=== PATIENT | male | born 1945 | race Caucasian/White ===

== ENCOUNTER 2017-11-23 17:43 | Emergency (ER) | payer MEDICARE, MEDICAID ==
[~2017-11-23] VITALS: Ht 175.3 cm; Wt 97.0 kg
[2017-11-23] MEDS ORDERED: LISI5TAB7 PO (18:08)
[2017-11-23] MEDS ORDERED: MULT1TAB98 PO (18:08)
[2017-11-23] MEDS ORDERED: GUAI600T31 PO (18:08)
[2017-11-23] MEDS ORDERED: QUET100T PO (18:08)
[2017-11-23] MEDS ORDERED: DIVA500T17 PO (18:08)
[2017-11-23] MEDS ORDERED: CARV3.122 PO (18:08)
[2017-11-23] MEDS ORDERED: FURO20TA3 PO (18:08)
[2017-11-23] MEDS ORDERED: SODIUM CHLORIDE FLUSH 10ML SYR IVF ONE (18:30)
[2017-11-23] MEDS ORDERED: FLUORESCEIN OPHTHALMIC 1 MG STRIP EACHEYE ONE (18:30)
[2017-11-23] MEDS ORDERED: PROPARACAINE OPHTH 0.5%, 15ML EACHEYE ONE (18:30)
[2017-11-23] MEDS ORDERED: PROPARACAINE OPHTH 0.5%, 15ML ONE ×2 (18:42→19:16)
[2017-11-23 19:13] LABS: BASOPHILS # (AUTO) 0.02 x10^3/uL (0-0.1); BASOPHILS % (AUTO) 0 % (0-1); EOSINOPHILS # (AUTO) 0.17 x10^3/uL (0-0.4); EOSINOPHILS % (AUTO) 2 % (1-7); LYMPHOCYTES % (AUTO) 25 % (22-44); MD NO; MEAN CORPUSCULAR HEMOGLOBIN 32.8 pg (27.5-34.5); MEAN CORPUSCULAR HGB CONC 34.2 g/dL (33.2-36.2); MEAN PLATELET VOLUME 10.7 fL (7.4-10.4); MONOCYTES # (AUTO) 0.94 x10^3/uL (0.2-0.8); MONOCYTES % (AUTO) 10 % (2-9); NEUTROPHILS # (AUTO) 5.96 x10^3/uL (1.8-6.8); NEUTROPHILS % (AUTO) 64 % (42-75); PLATELET COUNT 127 x10^3/uL (130-400); RED BLOOD COUNT 5.02 x10^6/uL (4.38-5.82); RED CELL DISTRIBUTION WIDTH 14.8 % (9.4-14.8)
[2017-11-23 19:24] LABS: CHLORIDE 108 mmol/L (98-107)
[2017-11-23] MEDS ORDERED: PLEASE ENTER ALLERGIES MC SCH (19:30)
[2017-11-23 19:32] LABS: ALANINE AMINOTRANSFERASE 25 U/L (12-78); ALBUMIN 3.3 g/dL (3.4-5.0); ALKALINE PHOSPHATASE 65 U/L (45-117); ANION GAP 2 mmol/L (5-15); BILIRUBIN,TOTAL 0.3 mg/dL (0.2-1.0); CREATININE 1.59 mg/dL (0.7-1.3); TROPONIN I 0.029 ng/mL (0.000-0.045)
[2017-11-23 22:36] VITALS: BP 167/99
== END 2017-11-23 23:08 | disposition home or self-care (01) ==
LOC: ED 22:21
DX: S09.8XXA Other specified injuries of head, initial encounter (principal); N28.9 Disorder of kidney and ureter, unspecified; Z86.73 Personal history of transient ischemic attack (TIA), and cerebral infarction without residual deficits; I10 Essential (primary) hypertension; Y93.89 Activity, other specified; W18.30XA Fall on same level, unspecified, initial encounter; Y99.8 Other external cause status; Y92.89 Other specified places as the place of occurrence of the external cause
CPT/HCPCS: 36415; 70450; 71045; 80053; 84484; 85025; 93005; 99285

== ENCOUNTER 2018-05-09 13:28 | Inpatient (IN) | payer MEDICARE, MEDICAID ==
[~2018-05-09] VITALS: Ht 193 cm; Wt 92.8 kg
[~2018-05-09 13:28] MED LIST: CARV3.122 PO; DIVA500T17 PO; FURO20TA3 PO; GUAI600T31 PO; LISI5TAB7 PO; MULT1TAB98 PO; QUET100T PO
[2018-05-09] MEDS ORDERED: BISACODYL 10 MG SUPP PR PRN (18:30)
[2018-05-09] MEDS ORDERED: DOCUSATE 100 MG CAPSULE PO PRN (18:30)
[2018-05-09 20:00] VITALS: BP_SYST 124; BP_DIAS 71; BP_DIAS 84
[2018-05-09] MEDS: PLEASE ENTER HEIGHT AND WEIGHT MC SCH (20:00)
[2018-05-09] MEDS ORDERED: OXCARBAZEPINE 150 MG TABLET PO SCH (21:00)
[2018-05-09] MEDS ORDERED: RISPERIDONE 1 MG TAB.RAPDIS PO SCH (21:00)
[2018-05-09] MEDS: ISOSORBIDE DINITRATE 10 MG TABLET PO SCH (21:00)
[2018-05-09 21:15] LABS: MICROSCOPIC NOT IND
[2018-05-09 21:20] LABS: CULTURE INDICATED? NO
[2018-05-09] MEDS: DOCUSATE 100 MG CAPSULE PO SCH (21:59)
[2018-05-09] MEDS: FAMOTIDINE 20 MG TABLET PO SCH (22:00)
[2018-05-09] MEDS: MIRTAZAPINE 15 MG TABLET PO SCH (22:00)
[2018-05-09] MEDS: ACETAMINOPHEN 325 MG TABLET PO PRN (23:19)
[2018-05-10] MEDS: PLEASE ENTER HEIGHT AND WEIGHT MC SCH (04:00)
[2018-05-10 06:10] LABS: BASOPHILS # (AUTO) 0.03 x10^3/uL (0-0.1); BASOPHILS % (AUTO) 1 % (0-1); EOSINOPHILS # (AUTO) 0.29 x10^3/uL (0-0.4); EOSINOPHILS % (AUTO) 5 % (1-7); LYMPHOCYTES # (AUTO) 2.07 x10^3/uL (1-3.4); LYMPHOCYTES % (AUTO) 33 % (22-44); MD NO; MEAN CORPUSCULAR HEMOGLOBIN 32.2 pg (27.5-34.5); MEAN CORPUSCULAR HGB CONC 33.4 g/dL (33.2-36.2); MEAN CORPUSCULAR VOLUME 96.2 fL (81-97); MEAN PLATELET VOLUME 9.2 fL (7.4-10.4); MONOCYTES # (AUTO) 0.57 x10^3/uL (0.2-0.8); MONOCYTES % (AUTO) 9 % (2-9); NEUTROPHILS % (AUTO) 53 % (42-75); PLATELET COUNT 124 x10^3/uL (130-400); RED BLOOD COUNT 4.06 x10^6/uL (4.38-5.82); RED CELL DISTRIBUTION WIDTH 15.4 % (9.4-14.8)
[2018-05-10 06:19] LABS: ANION GAP 4 mmol/L (5-15); CALCIUM 8.6 mg/dL (8.5-10.1); CHLORIDE 110 mmol/L (98-107)
[2018-05-10 06:51] LABS: ALANINE AMINOTRANSFERASE 16 U/L (12-78); ALBUMIN 2.8 g/dL (3.4-5.0); ALKALINE PHOSPHATASE 70 U/L (45-117); BILIRUBIN,TOTAL 0.6 mg/dL (0.2-1.0); CHOL/HDL RATIO 4.5; CHOLESTEROL, TOTAL 153 mg/dL (140-239); CREATININE 1.05 mg/dL (0.7-1.3); FOLATE LEVEL 16.1 ng/mL (3.1-17.5); FREE T4 (FREE THYROXINE) 1.14 ng/dL (0.76-1.46); HDL CHOL % 22 % (26-37); HDL CHOLESTEROL (DIRECT) 34 mg/dL (40-60); LDL CHOLESTEROL,CALCULATED 100 mg/dL (54-169); LDL/HDL RATIO 2.9 (0.5-3.0); THYROID STIMULATING HORMONE 0.837 mIU/L (0.358-3.740); TOTAL PROTEIN 6.2 g/dL (6.4-8.2); TRIGLYCERIDES 94 mg/dL (50-200); VLDL CHOLESTEROL 19 mg/dL (0-25)
[2018-05-10 07:35] VITALS: BP 133/78
[2018-05-10] MEDS: ISOSORBIDE DINITRATE 10 MG TABLET PO SCH ×2 (09:00→21:00)
[2018-05-10] MEDS: ASPIRIN 81 MG TABLET CHEW PO SCH (09:42)
[2018-05-10] MEDS: TAMSULOSIN 0.4 MG CAP.ER.24H PO SCH (09:43)
[2018-05-10] MEDS: DOCUSATE 100 MG CAPSULE PO SCH ×2 (09:43→20:04)
[2018-05-10] MEDS: LOSARTAN 50MG TABLET PO SCH (09:43)
[2018-05-10] MEDS: MULTIVITAMIN 1 TABLET PO SCH (09:44)
[2018-05-10] MEDS: FAMOTIDINE 20 MG TABLET PO SCH ×2 (09:44→21:00)
[2018-05-10 20:00] VITALS: BP 129/77
[2018-05-10] MEDS: MIRTAZAPINE 15 MG TABLET PO SCH (20:05)
[2018-05-10] MEDS: OXCARBAZEPINE 150 MG TABLET PO SCH (20:05)
[2018-05-10] MEDS: ACETAMINOPHEN 325 MG TABLET PO PRN (22:50)
[2018-05-11 07:37] VITALS: BP 139/70
[2018-05-11] MEDS: DOCUSATE 100 MG CAPSULE PO SCH ×2 (08:49→22:00)
[2018-05-11] MEDS: TAMSULOSIN 0.4 MG CAP.ER.24H PO SCH (08:49)
[2018-05-11] MEDS: MULTIVITAMIN 1 TABLET PO SCH (08:49)
[2018-05-11] MEDS: FAMOTIDINE 20 MG TABLET PO SCH ×2 (08:49→21:59)
[2018-05-11] MEDS: OXCARBAZEPINE 150 MG TABLET PO SCH ×2 (08:49→21:59)
[2018-05-11] MEDS: ASPIRIN 81 MG TABLET CHEW PO SCH (08:49)
[2018-05-11] MEDS: ISOSORBIDE DINITRATE 10 MG TABLET PO SCH ×2 (08:50→22:00)
[2018-05-11] MEDS: LOSARTAN 50MG TABLET PO SCH (08:50)
--- NOTE | 2018-05-11 12:58 | NUR ---
Chopped diet with thin liquids. Swallow strategies and precautions were verbalized and written on an orange sheet that was placed in patient's room on the whiteboard. Addendum: 05/11/18 at 1309 by PANKAJ HUGHES Amended: Links added.
[2018-05-11] MEDS ORDERED: LORazepam 2 MG/ML, 1ML ONE (14:31)
[2018-05-11] MEDS ORDERED: LORazepam 2 MG/ML, 1ML IM ONE ×2 (15:00→16:00)
[2018-05-11 21:51] VITALS: BP 153/93
[2018-05-11] MEDS: MIRTAZAPINE 15 MG TABLET PO SCH (21:59)
[2018-05-11] MEDS: TEMAZEPAM 15 MG CAPSULE PO SCH (22:00)
[2018-05-12 07:23] VITALS: BP 142/75
[2018-05-12] MEDS: ISOSORBIDE DINITRATE 10 MG TABLET PO SCH ×2 (12:00→20:06)
[2018-05-12] MEDS: LOSARTAN 50MG TABLET PO SCH (12:38)
[2018-05-12] MEDS: DOCUSATE 100 MG CAPSULE PO SCH ×2 (12:38→20:05)
[2018-05-12] MEDS: TAMSULOSIN 0.4 MG CAP.ER.24H PO SCH (12:38)
[2018-05-12] MEDS: MULTIVITAMIN 1 TABLET PO SCH (12:39)
[2018-05-12] MEDS: FAMOTIDINE 20 MG TABLET PO SCH ×2 (12:39→20:05)
[2018-05-12] MEDS: ASPIRIN 81 MG TABLET CHEW PO SCH (12:39)
[2018-05-12] MEDS: OXCARBAZEPINE 150 MG TABLET PO SCH ×2 (12:39→20:05)
[2018-05-12] MEDS ORDERED: DIAZEPAM 5 MG TABLET ONE (14:24)
[2018-05-12] MEDS: DIAZEPAM 5 MG TABLET PO PRN ×2 (14:28→21:28)
[2018-05-12 19:31] VITALS: BP 129/70
[2018-05-12] MEDS: MIRTAZAPINE 15 MG TABLET PO SCH (20:05)
[2018-05-12] MEDS: TEMAZEPAM 15 MG CAPSULE PO SCH (20:07)
[2018-05-13 07:46] VITALS: BP 147/77
[2018-05-13] MEDS: ISOSORBIDE DINITRATE 10 MG TABLET PO SCH ×2 (09:00→20:23)
[2018-05-13] MEDS: MULTIVITAMIN 1 TABLET PO SCH (09:01)
[2018-05-13] MEDS: ASPIRIN 81 MG TABLET CHEW PO SCH (09:01)
[2018-05-13] MEDS: OXCARBAZEPINE 150 MG TABLET PO SCH ×2 (09:01→20:23)
[2018-05-13] MEDS: TAMSULOSIN 0.4 MG CAP.ER.24H PO SCH (09:01)
[2018-05-13] MEDS: FAMOTIDINE 20 MG TABLET PO SCH ×2 (09:01→20:24)
[2018-05-13] MEDS: LOSARTAN 50MG TABLET PO SCH (09:01)
[2018-05-13] MEDS: DOCUSATE 100 MG CAPSULE PO SCH ×2 (09:01→20:24)
[2018-05-13] MEDS ORDERED: DIAZEPAM 5 MG/ML, 10ML VIAL IM ONE (16:30)
[2018-05-13] MEDS: DIAZEPAM 5 MG TABLET PO PRN (17:20)
[2018-05-13 19:51] VITALS: BP 139/72
[2018-05-13] MEDS: MIRTAZAPINE 15 MG TABLET PO SCH (20:23)
[2018-05-13] MEDS: TEMAZEPAM 15 MG CAPSULE PO SCH (20:23)
[2018-05-14] MEDS: DIAZEPAM 5 MG TABLET PO PRN ×2 (05:18→15:09)
[2018-05-14 07:27] VITALS: BP 113/70
[2018-05-14] MEDS: MULTIVITAMIN 1 TABLET PO SCH (08:37)
[2018-05-14] MEDS: OXCARBAZEPINE 150 MG TABLET PO SCH ×2 (08:37→20:28)
[2018-05-14] MEDS: LOSARTAN 50MG TABLET PO SCH (08:37)
[2018-05-14] MEDS: ASPIRIN 81 MG TABLET CHEW PO SCH (08:38)
[2018-05-14] MEDS: DOCUSATE 100 MG CAPSULE PO SCH ×2 (08:39→20:28)
[2018-05-14] MEDS: TAMSULOSIN 0.4 MG CAP.ER.24H PO SCH (08:39)
[2018-05-14] MEDS: ISOSORBIDE DINITRATE 10 MG TABLET PO SCH ×2 (08:39→20:29)
[2018-05-14] MEDS: FAMOTIDINE 20 MG TABLET PO SCH ×2 (08:40→20:28)
[2018-05-14 19:28] VITALS: BP 127/71
[2018-05-14] MEDS: MIRTAZAPINE 15 MG TABLET PO SCH (20:29)
[2018-05-14] MEDS: TEMAZEPAM 15 MG CAPSULE PO SCH (20:29)
[2018-05-15 07:28] VITALS: BP 134/75
[2018-05-15] MEDS: MULTIVITAMIN 1 TABLET PO SCH (10:01)
[2018-05-15] MEDS: LOSARTAN 50MG TABLET PO SCH (10:01)
[2018-05-15] MEDS: DOCUSATE 100 MG CAPSULE PO SCH ×2 (10:01→20:25)
[2018-05-15] MEDS: OXCARBAZEPINE 150 MG TABLET PO SCH ×2 (10:01→20:24)
[2018-05-15] MEDS: ASPIRIN 81 MG TABLET CHEW PO SCH (10:02)
[2018-05-15] MEDS: FAMOTIDINE 20 MG TABLET PO SCH ×2 (10:02→20:24)
[2018-05-15] MEDS: ISOSORBIDE DINITRATE 10 MG TABLET PO SCH ×2 (10:02→20:25)
[2018-05-15] MEDS: TAMSULOSIN 0.4 MG CAP.ER.24H PO SCH (10:02)
[2018-05-15] MEDS: DIAZEPAM 5 MG TABLET PO PRN ×2 (14:54→23:49)
[2018-05-15 19:29] VITALS: BP 118/71
[2018-05-15] MEDS: TEMAZEPAM 15 MG CAPSULE PO SCH (20:24)
[2018-05-15] MEDS: MIRTAZAPINE 15 MG TABLET PO SCH (20:25)
[2018-05-16] MEDS: ACETAMINOPHEN 325 MG TABLET PO PRN (00:59)
[2018-05-16 08:13] VITALS: BP 153/66
[2018-05-16] MEDS: DOCUSATE 100 MG CAPSULE PO SCH ×2 (08:26→20:13)
[2018-05-16] MEDS: POLYETHYLENE GLYCOL 17 GM PACKET PO PRN (08:26)
[2018-05-16] MEDS: MULTIVITAMIN 1 TABLET PO SCH (08:26)
[2018-05-16] MEDS: ISOSORBIDE DINITRATE 10 MG TABLET PO SCH ×2 (08:26→20:17)
[2018-05-16] MEDS: LOSARTAN 50MG TABLET PO SCH (08:26)
[2018-05-16] MEDS: ASPIRIN 81 MG TABLET CHEW PO SCH (08:26)
[2018-05-16] MEDS: OXCARBAZEPINE 150 MG TABLET PO SCH ×2 (08:26→20:16)
[2018-05-16] MEDS: FAMOTIDINE 20 MG TABLET PO SCH ×2 (08:26→20:26)
[2018-05-16] MEDS: TAMSULOSIN 0.4 MG CAP.ER.24H PO SCH (08:26)
[2018-05-16] MEDS: DIAZEPAM 5 MG TABLET PO PRN ×2 (13:30→20:16)
[2018-05-16] MEDS: MIRTAZAPINE 15 MG TABLET PO SCH (20:16)
[2018-05-16] MEDS: TEMAZEPAM 15 MG CAPSULE PO SCH (20:17)
[2018-05-16 21:07] VITALS: BP 152/82
[2018-05-17 07:14] VITALS: BP 165/92
[2018-05-17] MEDS ORDERED: LORazepam 2 MG/ML, 1ML ONE ×2 (08:09→20:36)
[2018-05-17] MEDS ORDERED: LORazepam 2 MG/ML, 1ML IM ONE (08:30)
[2018-05-17] MEDS: ISOSORBIDE DINITRATE 10 MG TABLET PO SCH ×2 (09:00→19:35)
[2018-05-17] MEDS: DOCUSATE 100 MG CAPSULE PO SCH ×2 (09:02→20:47)
[2018-05-17] MEDS: DIAZEPAM 5 MG TABLET PO PRN ×2 (09:03→19:35)
[2018-05-17] MEDS: ASPIRIN 81 MG TABLET CHEW PO SCH (09:03)
[2018-05-17] MEDS: MULTIVITAMIN 1 TABLET PO SCH (09:03)
[2018-05-17] MEDS: TAMSULOSIN 0.4 MG CAP.ER.24H PO SCH (09:03)
[2018-05-17] MEDS: FAMOTIDINE 20 MG TABLET PO SCH ×2 (09:03→19:35)
[2018-05-17] MEDS: OXCARBAZEPINE 150 MG TABLET PO SCH ×2 (09:03→19:35)
[2018-05-17] MEDS: LOSARTAN 50MG TABLET PO SCH (09:04)
[2018-05-17 19:35] VITALS: BP 150/80
[2018-05-17] MEDS: MIRTAZAPINE 15 MG TABLET PO SCH (19:35)
[2018-05-17] MEDS: TEMAZEPAM 15 MG CAPSULE PO SCH (19:35)
[2018-05-17] MEDS: LORazepam 2 MG/ML, 1ML IM PRN (20:43)
[2018-05-18 07:25] VITALS: BP 156/91
[2018-05-18] MEDS: ISOSORBIDE DINITRATE 10 MG TABLET PO SCH ×2 (09:20→19:55)
[2018-05-18] MEDS: OXCARBAZEPINE 150 MG TABLET PO SCH ×2 (09:20→19:55)
[2018-05-18] MEDS: TAMSULOSIN 0.4 MG CAP.ER.24H PO SCH (09:20)
[2018-05-18] MEDS: ASPIRIN 81 MG TABLET CHEW PO SCH (09:20)
[2018-05-18] MEDS: MULTIVITAMIN 1 TABLET PO SCH (09:20)
[2018-05-18] MEDS: DOCUSATE 100 MG CAPSULE PO SCH ×2 (09:20→19:55)
[2018-05-18] MEDS: FAMOTIDINE 20 MG TABLET PO SCH ×2 (09:20→19:55)
[2018-05-18] MEDS: LOSARTAN 50MG TABLET PO SCH (09:21)
[2018-05-18] MEDS: LORazepam 2 MG/ML, 1ML IM PRN (14:27)
[2018-05-18] MEDS ORDERED: LORazepam 2 MG/ML, 1ML IM ONE (14:30)
[2018-05-18 19:29] VITALS: BP 155/88
[2018-05-18] MEDS: TEMAZEPAM 15 MG CAPSULE PO SCH (19:55)
[2018-05-18] MEDS: DIVALPROEX 125 MG CAP.SPRINK PO SCH (19:55)
[2018-05-18] MEDS: MIRTAZAPINE 15 MG TABLET PO SCH (19:55)
[2018-05-19] VITALS (12 sets, daily range): BP systolic 112–147; BP diastolic 70–79
[2018-05-19] MEDS: DIVALPROEX 125 MG CAP.SPRINK PO SCH ×2 (09:18→20:02)
[2018-05-19] MEDS: ASPIRIN 81 MG TABLET CHEW PO SCH (09:18)
[2018-05-19] MEDS: OXCARBAZEPINE 150 MG TABLET PO SCH ×2 (09:18→20:02)
[2018-05-19] MEDS: DOCUSATE 100 MG CAPSULE PO SCH ×2 (09:18→20:02)
[2018-05-19] MEDS: FAMOTIDINE 20 MG TABLET PO SCH ×2 (09:18→20:02)
[2018-05-19] MEDS: ISOSORBIDE DINITRATE 10 MG TABLET PO SCH ×2 (09:18→20:02)
[2018-05-19] MEDS: MULTIVITAMIN 1 TABLET PO SCH (09:19)
[2018-05-19] MEDS: TAMSULOSIN 0.4 MG CAP.ER.24H PO SCH (09:19)
[2018-05-19] MEDS: POLYETHYLENE GLYCOL 17 GM PACKET PO PRN (09:19)
[2018-05-19] MEDS: LOSARTAN 50MG TABLET PO SCH (09:19)
[2018-05-19] MEDS: DIAZEPAM 5 MG TABLET PO PRN ×3 (09:19→20:02)
[2018-05-19] MEDS: ACETAMINOPHEN 325 MG TABLET PO PRN (16:20)
--- NOTE | 2018-05-19 18:27 | NUR ---
MICHAEL GONZÁLES - Fall Risk Medications present (LOSARTAN, DIAZEPAM, LORAZEPAM, DIVALPROEX SPRINKLE, MIRTAZAPINE, TEMAZEPAM) and NOT receiving anticoagulants. Signed: 05/19/18 at 1831 by Baylee MALONE
[2018-05-19] MEDS: MIRTAZAPINE 15 MG TABLET PO SCH (20:02)
[2018-05-19] MEDS: TEMAZEPAM 15 MG CAPSULE PO SCH (20:02)
[2018-05-20 07:47] VITALS: BP 138/75
[2018-05-20] MEDS: MULTIVITAMIN 1 TABLET PO SCH (08:49)
[2018-05-20] MEDS: OXCARBAZEPINE 150 MG TABLET PO SCH ×2 (08:49→20:48)
[2018-05-20] MEDS: ISOSORBIDE DINITRATE 10 MG TABLET PO SCH ×2 (08:50→20:48)
[2018-05-20] MEDS: FAMOTIDINE 20 MG TABLET PO SCH ×2 (08:50→20:47)
[2018-05-20] MEDS: LOSARTAN 50MG TABLET PO SCH (08:50)
[2018-05-20] MEDS: ASPIRIN 81 MG TABLET CHEW PO SCH (08:50)
[2018-05-20] MEDS: DIVALPROEX 125 MG CAP.SPRINK PO SCH ×2 (08:50→20:47)
[2018-05-20] MEDS: TAMSULOSIN 0.4 MG CAP.ER.24H PO SCH (08:50)
[2018-05-20] MEDS: DOCUSATE 100 MG CAPSULE PO SCH ×2 (08:55→22:56)
[2018-05-20] MEDS: DIAZEPAM 5 MG TABLET PO PRN (15:26)
[2018-05-20 19:23] VITALS: BP 116/73
[2018-05-20] MEDS: TEMAZEPAM 15 MG CAPSULE PO SCH (20:47)
[2018-05-20] MEDS: MIRTAZAPINE 15 MG TABLET PO SCH (20:48)
[2018-05-21 05:32] LABS: ANION GAP 3 mmol/L (5-15); CALCIUM 8.9 mg/dL (8.5-10.1); CHLORIDE 112 mmol/L (98-107)
[2018-05-21 05:34] LABS: CREATININE 1.21 mg/dL (0.7-1.3)
[2018-05-21 07:43] VITALS: BP 136/73
[2018-05-21] MEDS: FAMOTIDINE 20 MG TABLET PO SCH ×2 (08:32→20:32)
[2018-05-21] MEDS: ASPIRIN 81 MG TABLET CHEW PO SCH (08:32)
[2018-05-21] MEDS: LOSARTAN 50MG TABLET PO SCH (08:32)
[2018-05-21] MEDS: DOCUSATE 100 MG CAPSULE PO SCH ×2 (08:32→20:32)
[2018-05-21] MEDS: ISOSORBIDE DINITRATE 10 MG TABLET PO SCH ×2 (08:32→20:32)
[2018-05-21] MEDS: OXCARBAZEPINE 150 MG TABLET PO SCH ×2 (08:32→20:31)
[2018-05-21] MEDS: TAMSULOSIN 0.4 MG CAP.ER.24H PO SCH (08:32)
[2018-05-21] MEDS: MULTIVITAMIN 1 TABLET PO SCH (08:32)
[2018-05-21] MEDS: DIVALPROEX 125 MG CAP.SPRINK PO SCH ×2 (08:33→20:31)
[2018-05-21] MEDS: FINASTERIDE 5 MG TABLET PO SCH (11:06)
[2018-05-21] MEDS: DIAZEPAM 5 MG TABLET PO PRN (17:07)
[2018-05-21 19:06] VITALS: BP 139/85
[2018-05-21] MEDS: MIRTAZAPINE 15 MG TABLET PO SCH (20:31)
[2018-05-21] MEDS: TEMAZEPAM 15 MG CAPSULE PO SCH (20:31)
[2018-05-22 07:27] VITALS: BP 154/82
[2018-05-22] MEDS: FAMOTIDINE 20 MG TABLET PO SCH ×2 (08:24→19:41)
[2018-05-22] MEDS: ISOSORBIDE DINITRATE 10 MG TABLET PO SCH ×2 (08:24→19:41)
[2018-05-22] MEDS: DIAZEPAM 5 MG TABLET PO PRN (08:24)
[2018-05-22] MEDS: ASPIRIN 81 MG TABLET CHEW PO SCH (08:24)
[2018-05-22] MEDS: OXCARBAZEPINE 150 MG TABLET PO SCH ×2 (08:24→19:42)
[2018-05-22] MEDS: DOCUSATE 100 MG CAPSULE PO SCH ×2 (08:24→21:00)
[2018-05-22] MEDS: TAMSULOSIN 0.4 MG CAP.ER.24H PO SCH (08:24)
[2018-05-22] MEDS: MULTIVITAMIN 1 TABLET PO SCH (08:24)
[2018-05-22] MEDS: LOSARTAN 50MG TABLET PO SCH (08:25)
[2018-05-22] MEDS: FINASTERIDE 5 MG TABLET PO SCH (08:25)
[2018-05-22] MEDS: DIVALPROEX 125 MG CAP.SPRINK PO SCH ×2 (08:25→19:41)
[2018-05-22 13:28] VITALS: BP 103/62
[2018-05-22 19:22] VITALS: BP 125/71
[2018-05-22] MEDS: MIRTAZAPINE 15 MG TABLET PO SCH (19:42)
[2018-05-22] MEDS: TEMAZEPAM 15 MG CAPSULE PO SCH (19:43)
[2018-05-23 09:09] VITALS: BP 173/84
[2018-05-23] MEDS: DIVALPROEX 125 MG CAP.SPRINK PO SCH ×2 (09:18→20:18)
[2018-05-23] MEDS: LOSARTAN 50MG TABLET PO SCH (09:18)
[2018-05-23] MEDS: MULTIVITAMIN 1 TABLET PO SCH (09:19)
[2018-05-23] MEDS: OXCARBAZEPINE 150 MG TABLET PO SCH (09:19)
[2018-05-23] MEDS: ASPIRIN 81 MG TABLET CHEW PO SCH (09:19)
[2018-05-23] MEDS: FINASTERIDE 5 MG TABLET PO SCH (09:19)
[2018-05-23] MEDS: TAMSULOSIN 0.4 MG CAP.ER.24H PO SCH (09:19)
[2018-05-23] MEDS: ISOSORBIDE DINITRATE 10 MG TABLET PO SCH ×2 (09:19→20:19)
[2018-05-23] MEDS: DOCUSATE 100 MG CAPSULE PO SCH ×2 (09:19→20:17)
[2018-05-23] MEDS: FAMOTIDINE 20 MG TABLET PO SCH ×2 (09:19→20:18)
[2018-05-23] MEDS: DIAZEPAM 5 MG TABLET PO PRN (10:49)
[2018-05-23 19:22] VITALS: BP 162/88
[2018-05-23] MEDS: MIRTAZAPINE 15 MG TABLET PO SCH (20:18)
[2018-05-23] MEDS: TEMAZEPAM 15 MG CAPSULE PO SCH (20:18)
[2018-05-24] MEDS: DIAZEPAM 5 MG TABLET PO PRN ×3 (07:17→23:18)
[2018-05-24 07:23] VITALS: BP 157/87
[2018-05-24] MEDS: MULTIVITAMIN 1 TABLET PO SCH (08:08)
[2018-05-24] MEDS: ASPIRIN 81 MG TABLET CHEW PO SCH (08:08)
[2018-05-24] MEDS: FINASTERIDE 5 MG TABLET PO SCH (08:08)
[2018-05-24] MEDS: FAMOTIDINE 20 MG TABLET PO SCH ×2 (08:08→20:06)
[2018-05-24] MEDS: DOCUSATE 100 MG CAPSULE PO SCH ×2 (08:08→20:04)
[2018-05-24] MEDS: LOSARTAN 50MG TABLET PO SCH (08:09)
[2018-05-24] MEDS: TAMSULOSIN 0.4 MG CAP.ER.24H PO SCH (08:09)
[2018-05-24] MEDS: ISOSORBIDE DINITRATE 10 MG TABLET PO SCH ×2 (08:09→20:05)
[2018-05-24] MEDS: DIVALPROEX 125 MG CAP.SPRINK PO SCH ×2 (08:10→20:05)
[2018-05-24] MEDS: ACETAMINOPHEN 325 MG TABLET PO PRN (09:53)
[2018-05-24 10:03] VITALS: BP 112/71
[2018-05-24 12:46] VITALS: BP 104/65
[2018-05-24 19:24] VITALS: BP 130/65
[2018-05-24] MEDS: MIRTAZAPINE 15 MG TABLET PO SCH (20:05)
[2018-05-24] MEDS: TEMAZEPAM 15 MG CAPSULE PO SCH (20:05)
[2018-05-25 07:29] VITALS: BP 178/84
[2018-05-25] MEDS: ASPIRIN 81 MG TABLET CHEW PO SCH (08:24)
[2018-05-25] MEDS: LOSARTAN 50MG TABLET PO SCH (08:25)
[2018-05-25] MEDS: DOCUSATE 100 MG CAPSULE PO SCH ×3 (08:25→21:00)
[2018-05-25] MEDS: TAMSULOSIN 0.4 MG CAP.ER.24H PO SCH (08:26)
[2018-05-25] MEDS: FAMOTIDINE 20 MG TABLET PO SCH ×2 (08:26→20:43)
[2018-05-25] MEDS: ISOSORBIDE DINITRATE 10 MG TABLET PO SCH ×2 (08:26→20:43)
[2018-05-25] MEDS: DIVALPROEX 125 MG CAP.SPRINK PO SCH ×2 (08:26→20:43)
[2018-05-25] MEDS: MULTIVITAMIN 1 TABLET PO SCH (08:26)
[2018-05-25] MEDS: FINASTERIDE 5 MG TABLET PO SCH (08:27)
[2018-05-25 13:17] VITALS: BP 104/65
[2018-05-25 19:41] VITALS: BP 153/83
[2018-05-25] MEDS: MIRTAZAPINE 15 MG TABLET PO SCH (20:44)
[2018-05-25] MEDS: DIAZEPAM 5 MG TABLET PO PRN (20:44)
[2018-05-25] MEDS: TEMAZEPAM 15 MG CAPSULE PO SCH (20:44)
[2018-05-26 07:37] VITALS: BP 137/78
[2018-05-26] MEDS: FINASTERIDE 5 MG TABLET PO SCH (08:39)
[2018-05-26] MEDS: ISOSORBIDE DINITRATE 10 MG TABLET PO SCH ×2 (08:39→19:57)
[2018-05-26] MEDS: TAMSULOSIN 0.4 MG CAP.ER.24H PO SCH (08:39)
[2018-05-26] MEDS: ACETAMINOPHEN 325 MG TABLET PO PRN (08:39)
[2018-05-26] MEDS: FAMOTIDINE 20 MG TABLET PO SCH ×2 (08:39→19:55)
[2018-05-26] MEDS: ASPIRIN 81 MG TABLET CHEW PO SCH (08:39)
[2018-05-26] MEDS: DIVALPROEX 125 MG CAP.SPRINK PO SCH ×2 (08:39→19:55)
[2018-05-26] MEDS: MULTIVITAMIN 1 TABLET PO SCH (08:40)
[2018-05-26] MEDS: DOCUSATE 100 MG CAPSULE PO SCH ×2 (08:40→20:35)
[2018-05-26] MEDS: LOSARTAN 50MG TABLET PO SCH (08:40)
[2018-05-26 12:30] VITALS: BP 112/59
[2018-05-26] MEDS: DIAZEPAM 5 MG TABLET PO PRN (18:51)
[2018-05-26] MEDS: MIRTAZAPINE 15 MG TABLET PO SCH (19:55)
[2018-05-26] MEDS: TEMAZEPAM 15 MG CAPSULE PO SCH (19:58)
[2018-05-26] MEDS ORDERED: LORazepam 2 MG/ML, 1ML IM PRN (21:30)
[2018-05-27 08:06] VITALS: BP 164/83
[2018-05-27] MEDS: DIVALPROEX 125 MG CAP.SPRINK PO SCH ×2 (08:39→22:49)
[2018-05-27] MEDS: TAMSULOSIN 0.4 MG CAP.ER.24H PO SCH (08:39)
[2018-05-27] MEDS: FINASTERIDE 5 MG TABLET PO SCH (08:40)
[2018-05-27] MEDS: ASPIRIN 81 MG TABLET CHEW PO SCH (08:40)
[2018-05-27] MEDS: DOCUSATE 100 MG CAPSULE PO SCH ×2 (08:40→22:49)
[2018-05-27] MEDS: FAMOTIDINE 20 MG TABLET PO SCH ×2 (08:40→20:59)
[2018-05-27] MEDS: MULTIVITAMIN 1 TABLET PO SCH (08:40)
[2018-05-27] MEDS: ISOSORBIDE DINITRATE 10 MG TABLET PO SCH ×2 (08:40→20:59)
[2018-05-27] MEDS: LOSARTAN 50MG TABLET PO SCH (08:40)
[2018-05-27 19:32] VITALS: BP 118/78
[2018-05-27] MEDS: TEMAZEPAM 15 MG CAPSULE PO SCH (22:49)
[2018-05-28 07:29] VITALS: BP 104/66
[2018-05-28] MEDS: ASPIRIN 81 MG TABLET CHEW PO SCH (10:40)
[2018-05-28] MEDS: DOCUSATE 100 MG CAPSULE PO SCH ×2 (10:40→21:00)
[2018-05-28] MEDS: LOSARTAN 50MG TABLET PO SCH (10:40)
[2018-05-28] MEDS: DIVALPROEX 125 MG CAP.SPRINK PO SCH ×2 (10:41→21:00)
[2018-05-28] MEDS: TAMSULOSIN 0.4 MG CAP.ER.24H PO SCH (10:41)
[2018-05-28] MEDS: MULTIVITAMIN 1 TABLET PO SCH (10:47)
[2018-05-28] MEDS: ISOSORBIDE DINITRATE 10 MG TABLET PO SCH ×2 (10:47→21:00)
[2018-05-28] MEDS: FAMOTIDINE 20 MG TABLET PO SCH ×2 (10:47→21:00)
[2018-05-28] MEDS: FINASTERIDE 5 MG TABLET PO SCH (10:48)
[2018-05-28 18:08] VITALS: BP 158/84
[2018-05-28] MEDS: ALPRazolam 1MG TAB PO SCH (21:00)
[2018-05-29 07:57] VITALS: BP 144/76
[2018-05-29] MEDS: ASPIRIN 81 MG TABLET CHEW PO SCH (08:27)
[2018-05-29] MEDS: LOSARTAN 50MG TABLET PO SCH (08:27)
[2018-05-29] MEDS: FAMOTIDINE 20 MG TABLET PO SCH ×2 (08:27→20:30)
[2018-05-29] MEDS: ISOSORBIDE DINITRATE 10 MG TABLET PO SCH ×2 (08:27→20:30)
[2018-05-29] MEDS: MULTIVITAMIN 1 TABLET PO SCH (08:27)
[2018-05-29] MEDS: TAMSULOSIN 0.4 MG CAP.ER.24H PO SCH (08:27)
[2018-05-29] MEDS: DOCUSATE 100 MG CAPSULE PO SCH ×2 (08:27→20:30)
[2018-05-29] MEDS: DIAZEPAM 5 MG TABLET PO PRN (08:28)
[2018-05-29] MEDS: FINASTERIDE 5 MG TABLET PO SCH (08:28)
[2018-05-29] MEDS: DIVALPROEX 125 MG CAP.SPRINK PO SCH ×2 (08:28→20:30)
[2018-05-29] MEDS ORDERED: DIAZEPAM 5 MG TABLET PO PRN (17:00)
[2018-05-29 19:39] VITALS: BP 166/81
[2018-05-29] MEDS: ALPRazolam 1MG TAB PO SCH (20:31)
[2018-05-29] MEDS: QUETIAPINE 25MG TABLET PO SCH (20:31)
[2018-05-30 07:41] VITALS: BP 157/81
[2018-05-30] MEDS: FAMOTIDINE 20 MG TABLET PO SCH ×2 (09:57→20:47)
[2018-05-30] MEDS: ISOSORBIDE DINITRATE 10 MG TABLET PO SCH ×2 (09:57→20:47)
[2018-05-30] MEDS: FINASTERIDE 5 MG TABLET PO SCH (09:57)
[2018-05-30] MEDS: ASPIRIN 81 MG TABLET CHEW PO SCH (09:58)
[2018-05-30] MEDS: MULTIVITAMIN 1 TABLET PO SCH (09:58)
[2018-05-30] MEDS: DOCUSATE 100 MG CAPSULE PO SCH ×2 (09:58→20:47)
[2018-05-30] MEDS: TAMSULOSIN 0.4 MG CAP.ER.24H PO SCH (09:58)
[2018-05-30] MEDS: DIVALPROEX 125 MG CAP.SPRINK PO SCH ×2 (09:58→20:47)
[2018-05-30] MEDS: LOSARTAN 50MG TABLET PO SCH (09:59)
[2018-05-30 19:58] VITALS: BP 120/68
[2018-05-30] MEDS: ALPRazolam 1MG TAB PO SCH (20:47)
[2018-05-30] MEDS: QUETIAPINE 25MG TABLET PO SCH (20:48)
[2018-05-31 07:37] VITALS: BP 178/90
[2018-05-31] MEDS: FINASTERIDE 5 MG TABLET PO SCH (08:19)
[2018-05-31] MEDS: DIVALPROEX 125 MG CAP.SPRINK PO SCH ×2 (08:19→19:59)
[2018-05-31] MEDS: LOSARTAN 50MG TABLET PO SCH (08:19)
[2018-05-31] MEDS: DOCUSATE 100 MG CAPSULE PO SCH ×2 (08:19→19:59)
[2018-05-31] MEDS: FAMOTIDINE 20 MG TABLET PO SCH ×2 (08:20→20:00)
[2018-05-31] MEDS: TAMSULOSIN 0.4 MG CAP.ER.24H PO SCH (08:20)
[2018-05-31] MEDS: ISOSORBIDE DINITRATE 10 MG TABLET PO SCH ×2 (08:20→20:00)
[2018-05-31] MEDS: ASPIRIN 81 MG TABLET CHEW PO SCH (08:20)
[2018-05-31] MEDS: MULTIVITAMIN 1 TABLET PO SCH (08:20)
--- NOTE | 2018-05-31 15:43 | NUR ---
PERMIT SPECIALIST RECOMMEND: JASON/ FE -No straws -Up at 90 degrees -Assist as needed Addendum: 05/31/18 at [address] Amended: Links added.
[2018-05-31 19:15] VITALS: BP 130/73
[2018-05-31] MEDS: ALPRazolam 1MG TAB PO SCH (20:00)
[2018-05-31] MEDS: QUETIAPINE 25MG TABLET PO SCH (20:00)
[2018-06-01 07:45] VITALS: BP 118/73
[2018-06-01] MEDS: LOSARTAN 50MG TABLET PO SCH (10:14)
[2018-06-01] MEDS: DOCUSATE 100 MG CAPSULE PO SCH ×2 (10:14→19:43)
[2018-06-01] MEDS: MULTIVITAMIN 1 TABLET PO SCH (10:14)
[2018-06-01] MEDS: ISOSORBIDE DINITRATE 10 MG TABLET PO SCH ×2 (10:15→19:44)
[2018-06-01] MEDS: ASPIRIN 81 MG TABLET CHEW PO SCH (10:15)
[2018-06-01] MEDS: DIVALPROEX 125 MG CAP.SPRINK PO SCH ×2 (10:15→19:44)
[2018-06-01] MEDS: FINASTERIDE 5 MG TABLET PO SCH (10:15)
[2018-06-01] MEDS: FAMOTIDINE 20 MG TABLET PO SCH ×2 (10:15→19:44)
[2018-06-01] MEDS: TAMSULOSIN 0.4 MG CAP.ER.24H PO SCH (10:15)
[2018-06-01 10:16] VITALS: BP 118/73
[2018-06-01] MEDS: QUETIAPINE 25MG TABLET PO SCH (19:43)
[2018-06-01] MEDS: ALPRazolam 1MG TAB PO SCH (19:44)
[2018-06-01 20:33] VITALS: BP 138/77
[2018-06-02 07:16] VITALS: BP 162/72
[2018-06-02] MEDS: ISOSORBIDE DINITRATE 10 MG TABLET PO SCH ×2 (08:21→20:08)
[2018-06-02] MEDS: FINASTERIDE 5 MG TABLET PO SCH (08:21)
[2018-06-02] MEDS: POLYETHYLENE GLYCOL 17 GM PACKET PO PRN (08:21)
[2018-06-02] MEDS: TAMSULOSIN 0.4 MG CAP.ER.24H PO SCH (08:21)
[2018-06-02] MEDS: ASPIRIN 81 MG TABLET CHEW PO SCH (08:22)
[2018-06-02] MEDS: MULTIVITAMIN 1 TABLET PO SCH (08:22)
[2018-06-02] MEDS: LOSARTAN 50MG TABLET PO SCH (08:22)
[2018-06-02] MEDS: DOCUSATE 100 MG CAPSULE PO SCH ×2 (08:22→20:08)
[2018-06-02] MEDS: FAMOTIDINE 20 MG TABLET PO SCH ×2 (08:22→20:08)
[2018-06-02] MEDS: DIVALPROEX 125 MG CAP.SPRINK PO SCH ×2 (10:16→20:08)
[2018-06-02 19:43] VITALS: BP 116/71
[2018-06-02] MEDS: QUETIAPINE 25MG TABLET PO SCH (20:08)
[2018-06-02] MEDS: ALPRazolam 1MG TAB PO SCH (20:08)
[2018-06-03 07:22] VITALS: BP 155/82
[2018-06-03] MEDS: MULTIVITAMIN 1 TABLET PO SCH (09:15)
[2018-06-03] MEDS: TAMSULOSIN 0.4 MG CAP.ER.24H PO SCH (09:15)
[2018-06-03] MEDS: FAMOTIDINE 20 MG TABLET PO SCH ×2 (09:15→19:48)
[2018-06-03] MEDS: FINASTERIDE 5 MG TABLET PO SCH (09:15)
[2018-06-03] MEDS: DOCUSATE 100 MG CAPSULE PO SCH ×2 (09:15→19:48)
[2018-06-03] MEDS: ASPIRIN 81 MG TABLET CHEW PO SCH (09:15)
[2018-06-03] MEDS: DIVALPROEX 125 MG CAP.SPRINK PO SCH ×2 (09:15→19:48)
[2018-06-03] MEDS: LOSARTAN 50MG TABLET PO SCH (09:15)
[2018-06-03] MEDS: ISOSORBIDE DINITRATE 10 MG TABLET PO SCH ×2 (09:16→19:48)
[2018-06-03] MEDS: POLYETHYLENE GLYCOL 17 GM PACKET PO PRN (09:16)
[2018-06-03] MEDS ORDERED: LORazepam 2 MG/ML, 1ML IM ONE (16:30)
[2018-06-03] MEDS: ALPRazolam 1MG TAB PO SCH (19:48)
[2018-06-03] MEDS: QUETIAPINE 25MG TABLET PO SCH (19:48)
[2018-06-03 19:55] VITALS: BP 192/102
[2018-06-04] VITALS (11 sets, daily range): BP systolic 75–146; BP diastolic 35–81
[2018-06-04] MEDS: ACETAMINOPHEN 325 MG TABLET PO PRN (09:20)
[2018-06-04] MEDS: DIVALPROEX 125 MG CAP.SPRINK PO SCH (09:44)
[2018-06-04] MEDS: MULTIVITAMIN 1 TABLET PO SCH (09:46)
[2018-06-04] MEDS: DOCUSATE 100 MG CAPSULE PO SCH (09:46)
[2018-06-04] MEDS: LOSARTAN 50MG TABLET PO SCH (09:46)
[2018-06-04] MEDS: ASPIRIN 81 MG TABLET CHEW PO SCH (09:46)
[2018-06-04] MEDS: TAMSULOSIN 0.4 MG CAP.ER.24H PO SCH (09:46)
[2018-06-04] MEDS: FINASTERIDE 5 MG TABLET PO SCH (09:47)
[2018-06-04] MEDS: ISOSORBIDE DINITRATE 10 MG TABLET PO SCH (09:47)
[2018-06-04] MEDS: FAMOTIDINE 20 MG TABLET PO SCH (09:47)
[2018-06-04 10:53] LABS: BASOPHILS % (AUTO) 1 % (0-1); EOSINOPHILS # (AUTO) 0.04 x10^3/uL (0-0.4); EOSINOPHILS % (AUTO) 0 % (1-7); LYMPHOCYTES # (AUTO) 1.84 x10^3/uL (1-3.4); LYMPHOCYTES % (AUTO) 15 % (22-44); MD NO; MEAN CORPUSCULAR HEMOGLOBIN 32.7 pg (27.5-34.5); MEAN CORPUSCULAR HGB CONC 33.5 g/dL (33.2-36.2); MEAN CORPUSCULAR VOLUME 97.6 fL (81-97); MEAN PLATELET VOLUME 10.4 fL (7.4-10.4); MONOCYTES # (AUTO) 1.35 x10^3/uL (0.2-0.8); MONOCYTES % (AUTO) 11 % (2-9); NEUTROPHILS # (AUTO) 9.12 x10^3/uL (1.8-6.8); NEUTROPHILS % (AUTO) 73 % (42-75); PLATELET COUNT 168 x10^3/uL (130-400); RED BLOOD COUNT 4.83 x10^6/uL (4.38-5.82); RED CELL DISTRIBUTION WIDTH 15.2 % (9.4-14.8)
[2018-06-04 11:03] LABS: ALANINE AMINOTRANSFERASE 12 U/L (12-78); ALBUMIN 2.8 g/dL (3.4-5.0); ANION GAP 4 mmol/L (5-15); CALCIUM 9.1 mg/dL (8.5-10.1); CHLORIDE 113 mmol/L (98-107); CREATININE 1.16 mg/dL (0.7-1.3)
[2018-06-04 11:06] LABS: ALKALINE PHOSPHATASE 63 U/L (45-117); BILIRUBIN,TOTAL 0.5 mg/dL (0.2-1.0); TOTAL PROTEIN 6.5 g/dL (6.4-8.2)
[2018-06-04] MEDS: SODIUM CHLORIDE 0.9% 500 ML IV SCH ×3 (11:40→15:13)
[2018-06-04] MEDS ORDERED: CEFTRIAXONE PMX 1GM/50ML 50 ML IV SCH (13:30)
[2018-06-04] MEDS ORDERED: SODIUM CHLORIDE 0.9% 1,000 ML IV SCH ×3 (13:30→17:30)
[2018-06-04] MEDS ORDERED: DOXYCYCLINE 100 MG in DEXTROSE 5% 250 ML IV SCH (13:30)
[2018-06-04] MEDS: SODIUM CHLORIDE 0.9% 1,000 ML IV SCH ×2 (13:49→15:39)
[2018-06-04 14:25] LABS: MICROSCOPIC AUTO
[2018-06-04 14:27] LABS: RAPID INFLUENZA A Negative (Negative); RAPID INFLUENZA B Negative (Negative)
[2018-06-04 14:35] LABS: CULTURE INDICATED? YES
[2018-06-04] MEDS ORDERED: GUAIFENESIN 200 MG TABLET PO SCH (16:00)
[2018-06-04] MEDS ORDERED: VANCOMYCIN 1,800 MG in SODIUM CHLORIDE 0.9% 250 ML IV SCH (16:30)
[2018-06-04] MEDS ORDERED: VANCOMYCIN PER PHARMACY MC PRN (16:30)
[2018-06-04] MEDS ORDERED: PIPERACILLIN/TAZO/PMX 4.5GM 100 ML IV SCH (16:30)
[2018-06-04] MEDS ORDERED: PHARMACOKINETIC MONITORING MC PRN (16:30)
[2018-06-04] MEDS ORDERED: PHARMACOKINETIC CONSULTATION MC ONE (16:30)
[2018-06-04 16:53] LABS: TROPONIN I 0.051 ng/mL (0.000-0.045)
[2018-06-04] MEDS ORDERED: SODIUM CHLORIDE FLUSH 10ML SYR IVF SCH (21:00)
[2018-06-07] MEDS ORDERED: FINA5TAB4 PO (14:39)
[2018-06-07] MEDS ORDERED: GUAI100L11 PO (14:39)
[2018-06-07] MEDS ORDERED: AMOX1TAB12 PO (14:39)
[2018-06-07] MEDS ORDERED: POTA20TA6 PO (14:39)
[2018-06-07] MEDS ORDERED: TAMS-11 PO (14:39)
[2018-06-07] MEDS ORDERED: DOXY100T PO (14:39)
[2018-06-07] MEDS ORDERED: SULF-169 PO (14:39)
== END 2018-06-04 16:53 | disposition short-term general hospital (02) | DRG 885 ==
LOC: 3E 19:39
PROVIDERS: ADMIT Psychiatry & Neurology Psychosomatic Medicine; ATTEND Psychiatry & Neurology Psychosomatic Medicine
DX: F22 Delusional disorders (principal); A41.9 Sepsis, unspecified organism; J18.9 Pneumonia, unspecified organism; F02.81 Dementia in other diseases classified elsewhere, unspecified severity, with behavioral disturbance; I48.92 Unspecified atrial flutter; I11.0 Hypertensive heart disease with heart failure; I50.9 Heart failure, unspecified; I45.81 Long QT syndrome; R29.6 Repeated falls; I95.9 Hypotension, unspecified; R41.3 Other amnesia; D69.6 Thrombocytopenia, unspecified; E78.5 Hyperlipidemia, unspecified; I48.91 Unspecified atrial fibrillation; N40.0 Benign prostatic hyperplasia without lower urinary tract symptoms; Z79.82 Long term (current) use of aspirin; Z91.81 History of falling
CPT/HCPCS: 36415; 71045; 80048; 80053; 80061; 81001; 81003; 82140; 82533; 82607; 82746; 83605; 83880; 84145; 84439; 84443; 84484; 85025; 86592; 87040; 87077; 87086; 87186; 87400; 93005; 93306; G0103; J0696; J2543; J3360; J3370; J7060; 92523-GN; G0515-GN; J2060; J7030; J7040; J7050; L3919